=== PATIENT | male | born 1955 | race Caucasian/White ===

== ENCOUNTER 2020-03-14 15:39 | Observation (INO) | payer OTHER ==
[~2020-03-14] VITALS: Ht 185.4 cm; Wt 153.9 kg
[2020-03-14 15:44] VITALS: BP 152/92
[2020-03-14] MEDS ORDERED: LISINOPRIL2.5 MG PO (15:49)
[2020-03-14] MEDS ORDERED: METFORMIN HCL500 M3 PO (15:49)
[2020-03-14] MEDS ORDERED: NORVASC 2.5 MG2.5 M1 PO (15:50)
[2020-03-14] MEDS ORDERED: SIMVASTATIN80 MG PO (15:50)
[2020-03-14] MEDS ORDERED: GLIPIZIDE ER2.5 MG PO (15:50)
[2020-03-14] MEDS ORDERED: OMEPRAZOLE40 MG PO (15:51)
[2020-03-14] MEDS ORDERED: ASA81BEC PO (15:51)
[2020-03-14] MEDS ORDERED: AMLOD-VALSA-HC1 EAC3 PO (15:51)
[2020-03-14 16:11] LABS: ABSOLUTE BASOPHILS 0.1 thou/uL (0.0-0.2); ABSOLUTE EOSINOPHILS 0.1 thou/uL (0.0-0.7); ABSOLUTE LYMPHOCYTES 1.7 thou/uL (0.8-5.3); ABSOLUTE MONOCYTES 0.6 thou/uL (0.0-1.2); ABSOLUTE NEUTROPHILS 4.4 thou/uL (1.6-8.1); BASOPHILS 0.7 %; HEMATOCRIT 43.9 % (42.0-52.0); HEMOGLOBIN 15.2 gm/dL (14.0-18.0); LYMPHOCYTES 24.8 %; MCHC 34.7 g/dL (28.0-37.0); MCV 89.5 fL (80.0-100.0); MONOCYTES 8.9 %; MPV 8.5 fl. (7.2-11.1); NUCLEATED RBCS 0 /100WBC; PLATELET COUNT* 250 thou/uL (150-400); POLYS 64.6 %; RBC 4.91 mil/uL (4.50-6.00); RDW-CV 14.3 % (10.5-14.5); WBC 6.8 thou/uL (4.0-11.0)
[2020-03-14 16:20] LABS: CALCIUM 8.8 mg/dL (8.5-10.1); CREATININE 1.1 mg/dL (0.6-1.3); POTASSIUM 3.6 mmol/L (3.5-5.1)
[2020-03-14 16:23] LABS: APTT 24.6 Seconds (25.0-31.3); PROTIME 10.5 Seconds (9.20-11.50)
[2020-03-14 16:31] LABS: ALBUMIN 3.4 g/dL (3.4-5.0); TOTAL BILIRUBIN 0.4 mg/dL (<0.1-1.0); TOTAL PROTEIN 7.2 g/dL (6.4-8.2)
[2020-03-14 19:47] VITALS: BP 125/70
[2020-03-14 21:15] LABS: URINE BILIRUBIN NEGATIVE (Negative); URINE BLOOD NEGATIVE (Negative); URINE CLARITY CLEAR; URINE COLOR YELLOW; URINE GLUCOSE-RANDOM 2+ (Negative); URINE KETONES NEGATIVE (Negative); URINE LEUKOCYTES-REFLEX NEGATIVE (Negative); URINE NITRITE-REFLEX NEGATIVE (Negative); URINE PROTEIN NEGATIVE (Negative); URINE SPECIFIC GRAVITY 1.025 (1.005-1.030); URINE UROBILINOGEN 0.2 E.U./dl (0.2-1.0)
[2020-03-14 21:32] VITALS: BP 125/70
[2020-03-14 22:30] VITALS: BP 135/84
[2020-03-14 23:45] VITALS: BP 140/66
[2020-03-15 04:00] VITALS: BP 133/87
--- NOTE | 2020-03-15 06:29 | NUR ---
RECIEVED PT FROM ED , UPON ARRIVAL TO UNIT PT ALERT ORIENTED X4 DATA BASE AND ASSESSMENT COMPLETED. THERMAL TECHNICIAN PLACED ON PT SHOWS NSR. PT UP TO BATHROOM TO VOID HR 198 PT STATES HE FELT DIZZY WHICH IS WHAT BOUGHT HIM IN TO ED VSS . ONCE PT RETIRN TO BED AND PLACE IN BED WITH HOB 45 DEGREE HR RATUEN TO NSR 98. CALL PLACED THROUGH YOU CALL MD. TO NOTIFY, ORDER CALL BACK ORDERS RECIEVED PT RESTED WELL THROUGHOUT HOURLY ROUNDS. WILL CONITNUE TO MONITOR AND WILL REPORT CHANGES OR ABNORMAL FINDINGS.
[2020-03-15 08:00] VITALS: BP 126/84
[2020-03-15 08:54] LABS: CHOLESTEROL 182 mg/dL (<200); HDL CHOLESTEROL 37 mg/dL (>40); LDL CHOLESTEROL 130 mg/dL (<100); TC:HDL 4.9 Ratio (Not establshd); TRIGLYCERIDE 76 mg/dL (<150); VLDL 15 mg/dL (<40)
[2020-03-15 08:56] LABS: SERUM ASSESSMENT Clear
[2020-03-15 11:04] VITALS: BP 141/85
--- NOTE | 2020-03-15 15:38 | EKG ---
[place] [address] ELECTROCARDIOGRAM REPORT Name: SHANIQUE BRUNO Room: [address] M.R.#: [id number] Admission: 03/14/20 Attend Phys: Sim Sinclair Discharge: Date of : 55 Date of Service: 03/14/20 1546 Report #: [id number] THIS REPORT FOR: //name// [facility] ED Test Date: 2020-03-14 Test Time: 15:46:09 Pat Name: SHANIQUE BRUNO Department: Room: [facility] Gender: M [employer] Machine Operator: NORMA : 1955 Requested By: Curt Tafoya Order Number: [id number] MD: Don Vora Measurements Intervals [place] Rate: 108 P: 8 NM: 180 QRS: -33 QRSD: 90 T: 61 QT: 334 QTc: 448 Interpretive Statements Sinus tachycardia Inferior infarct, old possible No previous ECG available for comparison Electronically Signed On 03-15-2020 15:38:03 CDT by Don Vora [email or web address] <ELECTRONICALLY SIGNED> By: Don Vora MD, [facility] 03/15/20 1538 1546 154 Don Vora MD, FAC /EPI
[2020-03-15 16:07] VITALS: BP 145/87
[2020-03-15 19:35] VITALS: BP 143/79
[2020-03-16 00:44] VITALS: BP 115/76
[2020-03-16 02:06] LABS: GLYCOHEMOGLOBIN (HGB A1C) 11.7 % (4.8-5.6)
--- NOTE | 2020-03-16 03:23 | NUR ---
ASSUMED CARE OF PT AT 1900. PT IS ALERT AND ORIENTED. VSS. PERRLA. NO COMPLAINTS OF PAIN. PT IS UP AD BENNY. PT HAS NOT HAD ANY CARDIAC EVENTS THUS FAR. PT IS IN SINUS RYTHM ON THE TELEMETRY. PT IS RESTING COMFORTABLY IN BED. RESPIRATIONS ARE EVEN AND NONLABORED. WILL CONTINUE TO MONITOR PT.
[2020-03-16 05:24] VITALS: BP 106/69
[2020-03-16 05:25] LABS: ABSOLUTE BASOPHILS 0.1 thou/uL (0.0-0.2); ABSOLUTE EOSINOPHILS 0.1 thou/uL (0.0-0.7); ABSOLUTE LYMPHOCYTES 1.6 thou/uL (0.8-5.3); ABSOLUTE MONOCYTES 0.7 thou/uL (0.0-1.2); BASOPHILS 0.6 %; EOSINOPHILS 0.7 %; HEMATOCRIT 40.2 % (42.0-52.0); HEMOGLOBIN 13.9 gm/dL (14.0-18.0); LYMPHOCYTES 19.6 %; MCH 31.2 pg (26.0-34.0); MCHC 34.6 g/dL (28.0-37.0); MCV 90.3 fL (80.0-100.0); MONOCYTES 7.8 %; MPV 8.2 fl. (7.2-11.1); NUCLEATED RBCS 0 /100WBC; PLATELET COUNT* 222 thou/uL (150-400); POLYS 71.3 %; RBC 4.46 mil/uL (4.50-6.00); RDW-CV 14.6 % (10.5-14.5); WBC 8.4 thou/uL (4.0-11.0)
[2020-03-16 05:50] LABS: CALCIUM 8.2 mg/dL (8.5-10.1); CREATININE 0.8 mg/dL (0.6-1.3); POTASSIUM 3.4 mmol/L (3.5-5.1)
[2020-03-16 09:11] VITALS: BP 107/70
[2020-03-16 12:21] VITALS: BP 102/69
--- NOTE | 2020-03-16 12:35 | CARDNUC ---
[place] [address] CARDIAC NUCLEAR IMAGING REPORT Name: SHANIQUE BRUNO Room: [address] M.R.#: [id number] Admission: 03/14/20 Attend Phys: Sim Sinclair Discharge: Date of : 55 Date of Service: 03/16/20 1234 Report #: [id number] THIS REPORT FOR: cc: FAM - No family physician/PCP FAM - No family physician/PCP Preston Howell MD [facility] ~ APPROVED REPORT Imaging Protocol: Stress Tc-99m/Rest Tc-99m 2 days Study performed: 03/15/2020 08:10:00 Indication: Chest pain, Dyspnea, Palpitations, Dizziness, PSVT, Hypomagnesemia, ABN EKG. Patient Location: In-Patient Room #: 219 Stress Tech: Julia Weldon Stress Nurse: Cristina Khanna RN NM Tech:YESI Jean Baptiste Ht: 6 ft 1 in Wt: 339 lbs BSA: 2.69 m2 BMI: 44.72 Medical History Medical History: Angina, ABN EKG, Dyspnea, Dizziness/lightheadedness, Palpitations, Obesity, NALLELY, PSVT, Hypomagnesemia, DM, HTN, HLD, Past smoker, Edema. Medications: ASA 81 Mg, Lisinopril, Metformin, Glipizide, Hydralazine, Home meds reported- Simvastatin, Yehlrebtmi-Swcgntjqf-CXVU. Allergies: No known drug allergies Cardiac Risk Factors: Age, DM, HTN, Hyperlipidemia, SOB, Past Smoker, Angina, Obesity, PSVT, Palpitations, PVC's. Previous Cardiac Procedures: None Pretest Chest Pain Characteristics: No chest pain Exercise History: Sedentary Physical Disabilities: Dizziness/lightheadedness, unsteady-weak gait. Meds Held (24 hrs): All meds held/NPO. Resting Data Rest SPECT myocardial perfusion imaging was performed in supine position 30 minutes following the intravenous injection of 36.0 mCi of Tc-99m Sestamibi. Time of rest injection: 719 Date: 03/16/2020 [place] [address] CARDIAC NUCLEAR IMAGING REPORT Name: SHANIQUE BRUNO [address] [id number] Admission: 03/14/20 Attend Phys: Sim Sinclair Discharge: Date of : 55 Date of Service: 03/16/20 1234 Report #: [id number] The images were gated to evaluate regional wall motion and calculate left ventricular ejection fraction. Administration Route: IV Administration Site: Left AC Pharmacologic Stress Pharmacologic stress test was performed by injecting Regadenoson 0.4 mg IV push over 10-15 seconds immediately followed by the intravenous injection of 34.8 mCi of Tc-99m Sestamibi. Time of stress injection: 1340 Date: 03/15/2020 Administration Route: IV Administration Site: Left AC Gated Stress SPECT was performed 40 minutes after stress injection. The images were gated to evaluate regional wall motion and calculate left ventricular ejection fraction. Prone imaging was performed. Stress Test Details Stress Test: Pharmacologic stress testing performed using 0.4 mg of regadenoson per 5 mL given IV over 10 seconds. HR Max Heart Rate (APMHR): 155 bpm Resting HR: 94 bpm Target HR (85% APMHR): 131 bpm Max HR Achieved: 113 bpm % of APMHR: 72 Recovery HR: 109 bpm BP Resting BP: 166/113 mmHg Max BP: 134/86 mmHg Recovery BP: 130/95 mmHg ECG Resting ECG: Sinus Rhythm Stress ECG: Sinus Tachycardia ST Change: None Arrhythmia: None Recovery ECG: Sinus Rhythm Recovery ST Change: None Recovery Arrhythmia: None Clinical Reason for Termination: Completed protocol Stress Symptoms: Dyspnea, Dizziness, Lightheaded Exercise duration: 00 min 00 [place] [address] CARDIAC NUCLEAR IMAGING REPORT Name: SHANIQUE BRUNO Room: [address] M.RNette#: [id number] Admission: 03/14/20 Attend Phys: Sim Sinclair Discharge: Date of : 55 Date of Service: 03/16/20 1234 Report #: [id number] Exercise capacity: 1.00 METs The patient tolerated Lexiscan infusion without significant cardiac symptoms. Nurse Comments A 65 year old male inpatient presented for a sitting Lexiscan r/t chest pain, dyspnea, dizziness/lightheadedness, Palpitations, PSVT, and ABN EKG. Test well tolerated. Recovery unremarkable with PO caffeine. Patient was escorted by staff to Nuclear Medicine for imaging. Patient was stable and stated he felt good at that time. Stress ECG Conclusion The baseline twelve-lead EKG shows sinus rhythm without significant ST segment or T wave abnormality. EKGs obtained during and post Lexiscan infusion shows sinus rhythm and sinus tachycardia with no significant ST segment or T wave changes when compared to baseline. There were no stress-induced arrhythmias. Study Quality Study: Fair Artifact: Moderate Diaphragmatic artifact Study Data At rest, the left ventricular ejection fraction was 54%.. Post stress, the left ventricular ejection was 67%.. TID = 0.83. Perfusion Perfusion images obtained in the supine position at rest and post Lexiscan stress show photopenia involving the inferior wall that resolves for the most part with post-rest prone imaging suggesting a significant component of diaphragmatic attenuation artifact. Wall motion in this region appears normal. There were no defects to suggest ischemia. Wall Motion Normal left ventricular wall motion. Nuclear Conclusion ECG Findings: negative for ischemia Clinical Findings: negative for ischemia Nuclear Findings: negative for ischemia Exercise Capacity: not assessed Left Ventricular Function: normal Risk Study: [place] [address] CARDIAC NUCLEAR IMAGING REPORT Name: SHANIQUE BRUNO Room: [address] Wilmar Avery#: [id number] Admission: 03/14/20 Attend Phys: Sim Sinclair Discharge: Date of : 55 Date of Service: 03/16/20 1234 Report #: [id number] Perfusion images show no defect to suggest ischemia. Left ventricular systolic function appears normal on gated studies. This is a low risk study. <Conclusion> The baseline twelve-lead EKG shows sinus rhythm without significant ST segment or T wave abnormality. EKGs obtained during and post Lexiscan infusion shows sinus rhythm and sinus tachycardia with no significant ST segment or T wave changes when compared to baseline. There were no stress-induced arrhythmias. <ELECTRONICALLY SIGNED> By: Preston Howell MD, FAC 03/16/20 1234 1234 1234 Preston Howell MD, FACC /INF
[2020-03-16] MEDS ORDERED: LISINOPRIL20 MG PO (12:42)
[2020-03-16] MEDS ORDERED: TOPROL XL25 MG PO (12:42)
[2020-03-16] MEDS ORDERED: GLIPIZIDE ER2.5 MG PO (12:42)
[2020-03-16 13:36] VITALS: BP 102/69
[2020-03-16] MEDS ORDERED: MAGNESIUM250 M1 PO (14:16)
--- NOTE | 2020-03-16 16:14 | NUR ---
PT. A0X4, VSS, SR ON MONITOR, DENIES PAIN. DISCHARGE ORDER RECEIVED. DISCHARGE SUMMARY, ACTIVITY AND DIET RESTRICTIONS EXPLAINED. CARENOTES AND PRESRIPTIONS PROVIDED. IV DCED WITHOUT COMPLICATTIONS. PT. LEFT BY WC AND PICKED UP BY SPOUSE BY CAR. PT. WAS IN STABLE CONDITION AT TIME OF DISCHARGE.
== END 2020-03-16 14:30 | disposition home or self-care (01) ==
LOC: M.ERS 15:39 → M.TBA-ER 16:57 → M.2W 16:57
PROVIDERS: Family Medicine; Internal Medicine; Registered Nurse; ADMIT Internal Medicine; ATTEND Internal Medicine
DX: I47.1 Supraventricular tachycardia (principal); R07.89 Other chest pain; I10 Essential (primary) hypertension; E11.65 Type 2 diabetes mellitus with hyperglycemia; E83.42 Hypomagnesemia; E87.1 Hypo-osmolality and hyponatremia; R42 Dizziness and giddiness; R00.2 Palpitations; Z87.891 Personal history of nicotine dependence

== ENCOUNTER → 2020-11-10 | Outpatient (CLI) | payer OTHER ==
[~2020-11-10] MED LIST: AMLOD-VALSA-HC1 EAC3 PO; ASA81BEC PO; GLIPIZIDE ER2.5 MG PO; GLUCOTROL10 MG PO; LISINOPRIL-HCT1 EAC1 PO; LISINOPRIL2.5 MG PO; LISINOPRIL20 MG PO; MAGNESIUM250 M1 PO; METFORMIN HCL500 M3 PO; NORVASC 2.5 MG2.5 M1 PO; OMEPRAZOLE 20 M20 M1 PO; OMEPRAZOLE40 MG PO; PRAVASTATIN SOD40 MG PO; SIMVASTATIN80 MG PO; TOPROL XL25 MG PO; VERAPAMIL ER180 M1 PO
== END ==
LOC: M.LAB 11:35 → M.CT 13:15
PROVIDERS: ATTEND Family Medicine
DX: I26.99 Other pulmonary embolism without acute cor pulmonale (principal); R06.02 Shortness of breath; R91.8 Other nonspecific abnormal finding of lung field

== ENCOUNTER → 2021-06-13 | Outpatient (CLI) | payer OTHER ==
--- NOTE | 2021-06-13 14:14 | 2DMMODE ---
[place] [address] 2 D/M-MODE ECHOCARDIOGRAM Name: SHANIQUE BRUNO Room: [facility]#: [id number] Admission: 06/13/21 Attend Phys: Jose Armando Degroot Discharge: Date of : 55 Date of Service: 06/13/21 1414 Report #: [id number] THIS REPORT FOR: cc: Kvng Coulter Adam J DO Holkins,Don Woods MD [facility] ~ APPROVED REPORT Study performed: 06/13/2021 12:46:21 EXAM: Comprehensive 2D, Doppler, and color-flow Echocardiogram Patient Location: Out-Patient BSA: 2.69 HR: 80 bpm BP: 138/64 mmHg Other Information Study Quality: Fair Indications Hypertension/HDD 2D Dimensions IVSd: 11.38 (7-11mm) LVOT Diam: 20.05 (18-24mm) LVDd: 38.42 mm PWd: 10.88 (7-11mm) Ascending Ao: 33.69 (22-36mm) LVDs: 27.01 (25-40mm) Aortic Root: 27.13 mm Volumes Left Atrial Volume (Systole) LA ESV Index: 19.30 mL/m2 Aortic Valve AoV Peak Craig.: 1.33 m/s AO Peak Gr.: 7.03 mmHg LVOT Max P.92 mmHg AO Mean Gr.: 4.75 mmHg LVOT Mean P.37 mmHg LVOT Max V: 0.85 m/s AO V2 VTI: 23.28 cm LVOT Mean V: 0.53 m/s KEELY (VTI): 2.24 cm2 LVOT V1 VTI: 16.50 cm Mitral Valve E/A Ratio: 0.54 [place] [address] 2 D/M-MODE ECHOCARDIOGRAM Name: SHANIQUE BRUNO Room: [facility]#: [id number] Admission: 06/13/21 Attend Phys: Jose Armando Degroot Discharge: Date of : 55 Date of Service: 06/13/21 1414 Report #: [id number] MV Decel. Time: 308.72 ms MV E Max Craig.: 0.53 m/s MV PHT: 89.53 ms MVA (PHT): 2.46 cm2 TDI E/Lateral E': 6.63 E/Medial E': 8.83 Medial E' Craig.: 0.06 m/s Lateral E' Craig.: 0.08 m/s Pulmonary Valve PV Peak Craig.: 0.89 m/s PV Peak Gr.: 3.14 mmHg Left Ventricle The left ventricle is normal size. There is normal LV segmental wall motion. There is normal left ventricular wall thickness. Left ventricular systolic function is normal. The left ventricular ejection fraction is within the normal range. LVEF is 55-60%. Grade I - abnormal relaxation pattern. Right Ventricle The right ventricle is normal size. The right ventricular systolic function is normal. Atria The left atrium size is normal. The right atrium size is normal. Aortic Valve Mild aortic valve sclerosis. No aortic regurgitation is present. There is no aortic valvular stenosis. Mitral Valve The mitral valve is normal in structure. There is no mitral valve regurgitation noted. No evidence of mitral valve stenosis. Tricuspid Valve The tricuspid valve is normal in structure. There is no tricuspid valve regurgitation noted. Pulmonic Valve The pulmonary valve is normal in structure. There is no pulmonic valvular regurgitation. Great Vessels The aortic root is normal in size. IVC [place] [address] 2 D/M-MODE ECHOCARDIOGRAM Name: SHANIQUE BRUNO Room: [facility]#: [id number] Admission: 06/13/21 Attend Phys: Jose Armando Degroot Discharge: Date of : 55 Date of Service: 06/13/21 1414 Report #: [id number] collapses >50% with inspiration. Pericardium There is no pericardial effusion. <Conclusion> The left ventricle is normal size. There is normal left ventricular wall thickness. Left ventricular systolic function is normal. The left ventricular ejection fraction is within the normal range. LVEF is 55-60%. Grade I - abnormal relaxation pattern. The right ventricle is normal size. The left atrium size is normal. Mild aortic valve sclerosis. No aortic regurgitation is present. There is no aortic valvular stenosis. The mitral valve is normal in structure. The tricuspid valve is normal in structure. IVC is normal in size and collapses >50% with inspiration. There is no pericardial effusion. There is normal LV segmental wall motion. <ELECTRONICALLY SIGNED> By: Don Vora MD, [facility] 06/13/21 1414 1414 1414 Don Vora MD, FACC /INF
== END ==
LOC: M.CRD 12:49
PROVIDERS: ATTEND Internal Medicine
DX: I35.8 Other nonrheumatic aortic valve disorders (principal); I10 Essential (primary) hypertension